=== PATIENT | male | born 1990 | race African-American/Black ===

== ENCOUNTER 2024-04-26 12:18 | Emergency (ER) | payer OTHER, SELFPAY ==
--- NOTE | ~2024-04-26 | CT_ITS ---
CT abdomen pelvis w con Ordering provider: Alison Beaulieu PA-C History: 33 years Male with . injury, right upper quadrant abdominal pain, vomit . Comparison: None. Technique: CT abdomen and pelvis with IV and without oral contrast. Automated exposure control and it erative reconstruction technique were employed. The dose-length product was 806.08 mGy-cm. 100 mL Omn ipaque 350 was given IV. Findings: VISUALIZED LOWER CHEST: Normal. UPPER ABDOMINAL ORGANS: Liver: Mild hepatomegaly Gallbladder: Normal. Spleen: Normal. Stomach/duodenum: Normal. Pancreas: Normal. Adrenals: Normal. Kidneys: Normal. PELVIC ORGANS: The bladder is normal. BOWEL AND MESENTERY: Colon: No evidence of diverticulitis. Normal appendix. Small Bowel: Normal. No obstruction. Peritoneum/mesentery: No free air or free fluid. No mesenteric lymphadenopathy. RETROPERITONEUM: Normal aorta. No retroperitoneal lymphadenopathy. MUSCULOSKELETAL: Superficial soft tissues: Enlarged lymph nodes are seen in the inguinal areas measuring 2.8 cm on the left side and, CNM on the right. Soft tissue density seen in the anterior abdominal wall near to the left inguinal area measuring 3.3 x 1 cm. Clinical evaluation advised. Slight thickening of the skin in the area above the scrotum is seen bilaterally. This clinical evaluation advised. The superficial soft tissues are normal. Bones: Normal spine. IMPRESSION: 1. No acute abdominal process. 2. Bilateral inguinal lymphadenopathy more on the left side. 3. Thickening of the skin in the left inguinal area and just above the scrotum. Clinical evaluation advised. 4. Mild hepatomegaly. Reviewed, dictated and finalized at location A. IMPRESSION: 1. No acute abdominal process. 2. Bilateral inguinal lymphadenopathy more on the left side. 3. Thickening of the skin in the left inguinal area and just above the scrotum . Clinical evaluation advised. 4. Mild hepatomegaly.
[2024-04-26 12:20] VITALS: BP 157/83; PULSE 102; RESP 20; TEMP 36.6; O2SAT 98
--- NOTE | 2024-04-26 13:42 | ED.ABDPAIN ---
HPI - Abdominal Pain General Chief Complaint: Abdominal Pain Stated Complaint: abd injury at work Time Seen by Provider: 04/26/24 13:42 Focused HPI: This is a 33-year-old male that presents to the emergency department after an injury today with abdominal pain. Reports he works for the [employer]. A bar came down and hit him in the abdomen at work. Reports bruising and pain to the area. Reports an episode of vomiting. GENERAL: Well-appearing, well-nourished, and in no acute distress. HEAD: Normocephalic, atraumatic. CHEST: Clear to auscultation. ?No respiratory distress. HEART: Regular rate and rhythm.? NEURO: ?Alert and oriented x3. Patient screened in triage and initial orders placed.? ?Additional care and disposition to be based upon?diagnostic testing and treatment. Course Vital Signs Vital signs: Vital Signs Temperature 97.9 F 04/26/24 12:20 Pulse Rate 102 H 04/26/24 12:20 Respiratory Rate 20 04/26/24 12:20 Blood Pressure 157/83 H 04/26/24 12:20 Pulse Oximetry 98 04/26/24 12:20 Oxygen Delivery Room Air 04/26/24 12:20 Temperature 97.9 F 04/26/24 12:20 Pulse Rate 102 H 04/26/24 12:20 Respiratory Rate 20 04/26/24 12:20 Blood Pressure 157/83 H 04/26/24 12:20 Pulse Oximetry 98 04/26/24 12:20 Oxygen Delivery Room Air 04/26/24 12:20 Discharge Plan Discharge Instructions: Antibiotic Form Follow-up/Referrals: PHYSICIAN,LOADER TECHNICIAN [Primary Care Provider] -
[2024-04-26 14:52] LABS: Basophils Percent Auto 0.3 % (0.2-1.2); Eosinophils Absolute Auto 0.2 K/mm3 (0-0.3); Hematocrit 29.4 % (42.0-52.0); Hemoglobin 8.4 g/dL (14.0-18.0); Immature Granulocyte Absolute 0.04 K/mm3 (0.00-0.031); Immature Granulocyte Percent A 0.4 % (0-0.5); Lymphocytes Absolute Auto 1.73 K/mm3 (0.9-3.2); Lymphocytes Percent Auto 18.3 % (18.3-44.2); Mean Corpuscular HGB Conc 28.6 g/dl (32-36); Mean Corpuscular Volume 73.5 fl (80-100); Monocytes Absolute Auto 0.5 K/mm3 (0.1-0.6); Monocytes Percent Auto 5.1 % (2.6-8.5); Neutrophils Percent Auto 73.9 % (45.5-73.1); Platelet Count Result 583 k/mm3 (150-375); Red Cell Distribution Width 17.2 % (11.5-14.5); White Blood Count 9.4 K/mm3 (4.5-10.0)
[2024-04-26 15:00] VITALS: BP 146/88; PULSE 84; RESP 16; TEMP 36.7; O2SAT 100
[2024-04-26 15:02] LABS: INR 1.1; Prothrombin Time 14.5 Seconds (11.1-14.7)
[2024-04-26 15:03] LABS: Partial Thromboplastin Time 27.1 Seconds (22.3-36.8)
[2024-04-26 15:05] LABS: Estimated CRCL calculation 157 ml/min; Estimated Glomerular Filt Rate > 60
[2024-04-26 15:06] LABS: Alanine Aminotransferase 11 U/L (6-50); Albumin Level 3.8 g/dL (3.5-5.1); Alkaline Phosphatase 108 U/L (38-126); Anion Gap 8 mmol/L (4-12); Aspartate Amino Transferase 20 U/L (17-59); Bilirubin,Total 0.4 mg/dL (0.2-1.3); Blood Urea Nitrogen 10 mg/dL (9-20); Calcium 8.7 mg/dL (8.4-10.2); Carbon Dioxide 24 mmol/L (22-30); Chloride 104 mmol/L (98-107); Estimated CRCL calculation 157 ml/min; Estimated Glomerular Filt Rate > 60; Glucose 91 mg/dL (65-110); Lipase 82 U/L (23-300); Potassium 4.3 mmol/L (3.4-5.0); Sodium 136 mmol/L (137-145)
[2024-04-26 15:15] LABS: Appearance Urine Clear (Clear); Bacteria Urine None Seen /hpf; Bilirubin Urine Negative (Negative); Blood Urine Negative (Negative); Color Urine Yellow (Yellow); Glucose Urine UA Negative (Negative); Hyaline Casts Urine Present /lpf; Ketones Urine Trace mg/dL (Negative); Leukocyte Esterase Ur 1+ LEU/UL (Negative); Need Manual Microscopic Reviewed; Nitrate Urine Negative (Negative); Protein Urine 1+ mg/dL (Negative); RBC Urine 0-2 /hpf (0-2); Specific Grav Ur 1.023 (1.001-1.035); Squamous Epithelial Cell Urine Moderate /hpf (Few); White Blood Cell Casts Urine Present /lpf
[2024-04-26 15:17] LABS: Platelet Estimate Increased (Adequate); Schistocytes None Seen
[2024-04-26 15:18] LABS: Anisocytosis 2+; Hypochromasia 1+; Microcytosis 1+ (NORMAL)
[2024-04-26 15:20] LABS: Add Urine Microscopic? YES
[2024-04-26] MEDS: LACTATED RINGERS 1,000 ML 999 ML IV CONT (15:53)
[2024-04-26 16:15] LABS: Hematocrit 30.5 % (42.0-52.0); Hemoglobin 8.6 g/dL (14.0-18.0)
[2024-04-26 17:17] VITALS: BP 150/88; PULSE 86; RESP 16; TEMP 36.7; O2SAT 100
[2024-04-26] MEDS: MORPHINE SULFATE (*CRX) 4 MG/ML INJ IV PUSH (17:17)
--- NOTE | 2024-04-26 17:30 | ED.ABDPAIN ---
HPI - Abdominal Pain General Chief Complaint: Abdominal Pain Stated Complaint: abd injury at work Time Seen by Provider: 04/26/24 13:42 History of Present Illness HPI narrative: This is a 33-year-old male with a past medical history significant for hidradenitis with no other chronic medical complaints. Patient presents to the emergency department today after sustaining some abdominal trauma while at work. Patient states he was pushing a cart with a cross- bar when the cart tipped over and struck his abdomen. Patient states that he required some assistance from his coworkers to get the machine read off of him however he was not paying for any prolonged period time was only several seconds. He states that he initially had some significant pain in his abdomen however this is improving with time. Denies any other injuries that his head or lose consciousness. He was otherwise in his normal state of health. Denies any nausea, vomiting, head injury, diarrhea, constipation, urinary complaints. Has not taken anything for pain since. Related Data Allergies Allergy/AdvReac Type Severity Reaction Status Date / Time No Known Allergies Allergy Verified 04/26/24 15:29 Review of Systems Review of Systems: ROS as described above in the HPI Exam Narrative: GENERAL: [Well-appearing, well-nourished, and in no acute distress.] HEAD: [Normocephalic, atraumatic.] EYES: [PERRLA and EOMI.] ENT: Nares clear, no rhinorrhea or epistaxis. Mucous membranes moist. NECK: Supple. CHEST: [Clear to auscultation. No respiratory distress.] HEART: [Regular rate and rhythm]. No murmur heard. [Normal peripheral pulses.] ABDOMEN: [Soft, nondistended], minimally tender to palpation without any signs of guarding, [No rigidity or guarding] no anterior wall bruising or discoloration. EXTREMITIES: Normal range of motion. [No edema.] SKIN: Warm, dry, no rash. NEURO: [No focal deficits]. Alert and oriented [x3.] PSYCH: [Normal mood and affect.] Const: General: healthy appearing Course Vital Signs Vital signs: Vital Signs Temperature 36.6 C 04/26/24 12:20 Pulse Rate 102 H 04/26/24 12:20 Respiratory Rate 20 04/26/24 12:20 Blood Pressure 157/83 H 04/26/24 12:20 Pulse Oximetry 98 04/26/24 12:20 Oxygen Delivery Room Air 04/26/24 12:20 Temperature 36.6 C 04/26/24 17:50 Pulse Rate 76 04/26/24 17:50 Respiratory Rate 16 04/26/24 17:50 Blood Pressure 120/65 04/26/24 17:50 Pulse Oximetry 100 04/26/24 17:50 Oxygen Delivery Room Air 04/26/24 12:20 MDM - Abdominal Pain MDM Narrative Medical decision making narrative: This is a 33-year-old male who sustained some minor abdominal trauma while at work after a cart with the cross bar roll over and struck his abdomen without pinning him or crushing him. He appears well in no acute distress. He has a reassuring examination with a soft, nondistended, nonrigid abdomen. Some moderate tenderness in the epigastrium region with no overlying bruising. He is ambulatory, conversing and awake alert. No other sustained injury. No other complaints aside from the pain. Differential diagnosis at this time includes abdominal wall injury, abdominal hematoma, intra-abdominal pathology such as liver or spleen injury, less likely bowel injury. A workup was initiated including a CBC, CMP, urinalysis, lipase, PT, PTT. A CT abdomen pelvis with IV contrast was ordered. Patient was given morphine and 1 L LR. Patient's laboratory assessment came back with a significant finding of a hemoglobin of 8.4 with no previous CBC her documentation. Patient was not aware of any kind of anemia in his medical history. He does not have a primary care provider. Patient's remaining laboratory studies showed no acute coagulopathies, no kidney injury, normal electrolyte panel. Urinalysis showed no signs of infection or blood. Repeat H&H was ordered at this time given that he has no baseline hemoglobin and hi
[2024-04-26 17:50] VITALS: BP 120/65; PULSE 76; RESP 16; TEMP 36.6; O2SAT 100
== END 2024-04-26 17:50 | disposition home or self-care (01) ==
PROVIDERS: Physician Assistant; Emergency Provider Student in an Organized Health Care Education/Training Program
DX: S39.91XA Unspecified injury of abdomen, initial encounter (principal); D64.9 Anemia, unspecified; R16.0 Hepatomegaly, not elsewhere classified; W20.8XXA Other cause of strike by thrown, projected or falling object, initial encounter
CPT/HCPCS: 36415; 74177; 80053; 81001; 83690; 85014; 85018; 85025; 85610; 85730; 87086; 96361; 96374; 99284; J2270; J7120; Q9967